=== PATIENT | male | born 1955 | race Caucasian/White ===

== ENCOUNTER 2017-05-02 01:45 | Emergency (ER) | payer OTHER, BC ==
[~2017-05-02] VITALS: Ht 177.8 cm; Wt 123.8 kg
[~2017-05-02 01:45] MED LIST: ATIVAN0.5 MG PO; DULOXETINE HCL60 MG PO; EFFIENT10 MG PO; GLIPIZIDE XL5 MG PO; KOMBIGLYZE XR1 EAC1 PO; LIPITOR20 MG PO; LIPTRUZET PO; LO-DOSE ASPIRIN81 M1 PO; LOPRESSOR25 MG PO; MELOXICAM15 MG PO; NITROSTAT0.4 MG SL; PRILOSEC40 MG PO; VALSARTAN-HCTZ1 EAC3 PO; VESICARE5 MG PO; VYVANSE30 MG PO
[2017-05-02] MEDS ORDERED: ULTRACET1 TABLET PO (03:53)
[2017-05-02] MEDS ORDERED: KEFLEX500 MG PO (03:53)
[2017-05-02 04:04] VITALS: BP 140/90
== END 2017-05-02 04:05 | disposition home or self-care (01) ==
LOC: EME 01:45
PROC: 0HQFXZZ Repair Right Hand Skin, External Approach (ICD-10-PCS; principal; 2017-05-02)
PROC: 3E0234Z Introduction of Serum, Toxoid and Vaccine into Muscle, Percutaneous Approach (ICD-10-PCS; 2017-05-02)
DX: S61.411A Laceration without foreign body of right hand, initial encounter (principal); W45.8XXA Other foreign body or object entering through skin, initial encounter; W26.8XXA Contact with other sharp object(s), not elsewhere classified, initial encounter; W22.8XXA Striking against or struck by other objects, initial encounter; Y99.0 Civilian activity done for income or pay; Z23 Encounter for immunization; Z79.82 Long term (current) use of aspirin
CPT/HCPCS: 99281; 99285